=== PATIENT | female | born 1985 | race Caucasian/White ===

== ENCOUNTER → 2021-06-12 | Outpatient (CLI) | payer OTHER ==
[~2021-06-12] VITALS: Ht 177.8 cm; Wt 117.9 kg
[~2021-06-12] MED LIST: FLEXERIL PO; MELOXICAM15 MG PO; MIRENA1 EACH INTRAUTERI; NABUMETONE 500500 M2 PO; UNISOM25 MG PO
[2021-06-12 11:10] VITALS: BP 139/98
--- NOTE | 2021-06-12 11:29 | NUR ---
Pain Clinic Assessment: 1. History of Osteoarthritis: BACK History of Rheumatoid Arthritis: Not Applicable 2. Height: 5 ft. 10 in. 177.8 cm. Weight: 260.0 lb. oz. 117.936 kg. Patient's BMI: 37.3 3. Vital Signs: BP: 139/98 Pulse: 70 Resp: 16 Temp: 02 Sat: 100 ECG Mon: 4. Pain Intensity: 4 5. Fall Risk: Dizziness: N Needs help standing or walking: N Fallen in the last 3 months: N Fall risk comments: 6. Patient on Blood Thinner: None 7. History of Hypertension: N 8. Opioid Therapy greater than 6 weeks: N Opiate Contract Signed: 9. Risk Assessment Tool Provided: LOW-1 10. Functional Assessment Tool: 11. Recreational Drug Use: Never Drug Type: Tobacco Use: Former Smoker Tobacco Type: Amount or Packs/day: How Many Years: Alcohol Use: Yes Frequency: Special Occasions Quant: 1
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
== END ==
LOC: PAIN 10:20
PROVIDERS: ATTEND Anesthesiology Pain Medicine
DX: G89.29 Other chronic pain (principal); M47.817 Spondylosis without myelopathy or radiculopathy, lumbosacral region; E66.9 Obesity, unspecified; M19.90 Unspecified osteoarthritis, unspecified site; I10 Essential (primary) hypertension; G43.909 Migraine, unspecified, not intractable, without status migrainosus; F32.9 Major depressive disorder, single episode, unspecified; Z68.37 Body mass index [BMI] 37.0-37.9, adult; Z88.8 Allergy status to other drugs, medicaments and biological substances; Z79.891 Long term (current) use of opiate analgesic; Z79.899 Other long term (current) drug therapy

== ENCOUNTER → 2021-07-24 | Outpatient (CLI) | payer OTHER ==
[~2021-07-24] VITALS: Ht 177.8 cm; Wt 122.3 kg
[2021-07-24 13:02] VITALS: BP 135/93
--- NOTE | 2021-07-24 13:16 | NUR ---
Pain Clinic Assessment: 1. History of Osteoarthritis: BACK History of Rheumatoid Arthritis: Not Applicable 2. Height: 5 ft. 10 in. 177.8 cm. Weight: 269.6 lb. oz. 122.290 kg. Patient's BMI: 38.7 3. Vital Signs: BP: 135/93 Pulse: 65 Resp: 16 Temp: 02 Sat: 100 ECG Mon: 4. Pain Intensity: 2-3 5. Fall Risk: Dizziness: N Needs help standing or walking: N Fallen in the last 3 months: Y Fall risk comments: 6. Patient on Blood Thinner: None 7. History of Hypertension: N 8. Opioid Therapy greater than 6 weeks: N Opiate Contract Signed: 9. Risk Assessment Tool Provided: LOW-1 10. Functional Assessment Tool: 11. Recreational Drug Use: Current within past 3 mos Drug Type: CBD AND THC; EATABLE Tobacco Use: Former Smoker Tobacco Type: Amount or Packs/day: How Many Years: Alcohol Use: Yes Frequency: Weekly Quant: 1 BEER
--- NOTE | 2021-07-31 10:15 | HPC ---
[facility] [place] [address] [address] PAIN MANAGEMENT CONSULTATION Name: WILLY CAPPS Room #: REG [facility].#: [id number] Admission: 07/24/21 Attend Phys: Bay Dougherty DO Discharge: Date of : 83 Report #: [id number] THIS REPORT FOR: cc: HARIS JOYCE Physician not on staff Bay Dougherty DO ~ DATE OF SERVICE: 07/24/2021 CHIEF COMPLAINT: Axial back pain. HISTORY OF PRESENT ILLNESS: As you know, the patient is a 35-year-old, class 2 morbidly obese female with a longstanding history of low back pain which began about 1 year ago. She denies injury or trauma. She indicates she trialled conservative treatment, but no improvement in symptoms. When we saw the patient in consultation per the request of physician merchandising assistant, Diamond Chapman, the patient was complaining of basically axial back pain, no radiation of symptoms in classic dermatomal distribution. She was diagnosed with facet arthropathy of the lumbar spine leading to chronic axial back pain. We discussed treatment options; the patient was rotated from meloxicam to nabumetone. The patient reported no significant pain improvement with this medication. She returns today in followup visit to discuss the possibility of undergoing intraarticular diagnostic facet injections. ALLERGIES: SULFAMETHOXAZOLE, TRIAMTERENE. CURRENT MEDICATIONS: Unisom 25 mg p.o. at bedtime, cyclobenzaprine 10 mg t.i.d., Mirena IUD. SOCIAL HISTORY: The patient reports she uses no tobacco. She does use edible CBD and tetrahydrocannabinol. She admits to occasional alcohol beverage. She is self-employed. She is unaccompanied at today's visit. IMAGING: No new imaging available. PHYSICAL EXAMINATION: VITAL SIGNS: Blood pressure 135/93, pulse 65, respiratory rate 16 and unlabored. The patient 100% on room air. Height 5 feet 10 inches tall, weight 269.6 pounds, BMI calculated 38.7. GENERAL: Well-developed, well-nourished, well-hydrated, obese, 35-year-old female appearing stated age, pain is rated anywhere from 2-3/10. HEENT: Normocephalic, atraumatic. Pupils equal, round and responsive. She is wearing a mask in compliance with COVID-19 regulations. EXTREMITIES: Show no clubbing, no cyanosis. No appreciable edema. MUSCULOSKELETAL: Lower extremity strength is symmetrical 5/5. Muscle bulk and tone equal and symmetrical in comparing lower extremities. Seated straight leg raising negative. Supine straight leg raising negative. Fabere's test is negative. Modified Gaenslen's positive for axial low back pain. Lumbar [address] [address] PAIN MANAGEMENT CONSULTATION Name: WILLY CAPPS Room #: REG [facility] [id number] Admission: 07/24/21 Attend Phys: Bay Dougherty DO Discharge: Date of : 83 Report #: [id number] provocation testing is once again met with increasing axial back pain located over the L4-L5, L5-S1 facet joints bilaterally. ASSESSMENT: 1. Chronic low back pain due to facet arthropathy. 2. Lumbosacral spondylosis without radiculopathy. 3. Obesity. 4. Chronic intractable pain. PLAN: 1. The patient returns today in followup visit having noted no significant improvement in symptoms with the rotation from meloxicam to nabumetone. She reports that she may have been experiencing some side effects of diarrhea with the medication and discontinue the medication, but these symptoms have not improved. She returns today in followup visit, discussed treatment options to address axial back pain. We had discussed at her last visit treatment options to address facet arthropathy pain. These would include adjustments in medication management, which we have trialled and have not noted benefit. We discussed physical therapy for which the patient has undergone 12 weeks of physical therapy and is continuing to do her homework, but this has improved symptoms only mildly. We had discussed a diagnostic intra-articular facet injections in the hopes of improving symptoms and providing further information to the neurosurgery team who referred the patient. We also discussed radiofrequency lesioning of the medial branch nerves of the lumbar spine and ultimately surgical options. She returns today to begin the process of preapproval to undergo diagnostic intraarticular facet injections. 2. The patient was advised that due to third constitution party payer restrictions, authorization has to be obtained before the patient could undergo bilateral L4-L5, L5-S1 diagnostic intra-articular facet injections, will begin that authorization process immediately. Once we have that authorization completed, we will have the patient return to undergo those injections. If we are unable to obtain authorization for those type of injections requested by the neurosurgery team, we might look towards radiofrequency lesioning of medial branch nerves of the lumbar spine, which would start with medial branch nerve blocks. We wish to address the neurosurgeon's request for the bilateral diagnostic intra-articular facet injections first as this will provide them with information whether surgical options may be necessary. We will begin that process immediately and contact the patient once this is completed. 3. No medication changes made at today's visit. The patient will continue current medical therapy as prior prescribed. 4. We plan to see the patient back in followup visit once we have achieved [address] [address] PAIN MANAGEMENT CONSULTATION Name: WILLY CAPPS Room #: REG DAPHNIE Ruelas#: [id number] Admission: 07/24/21 Attend Phys: Bay Dougherty DO Discharge: Date of : 83 Report #: [id number] authorization to undergo bilateral L4-L5, L5-S1 intra-articular diagnostic facets. <ELECTRONICALLY SIGNED> By: Bay Dougherty DO 07/31/21 1015 1316 0018 Bay Dougherty DO /nt
== END ==
LOC: PAIN 10:05
PROVIDERS: ATTEND Anesthesiology Pain Medicine
DX: G89.29 Other chronic pain (principal); M47.817 Spondylosis without myelopathy or radiculopathy, lumbosacral region; E66.9 Obesity, unspecified

== ENCOUNTER → 2021-08-21 | Outpatient (CLI) | payer OTHER ==
[~2021-08-21] VITALS: Ht 177.8 cm; Wt 123.0 kg
[2021-08-21 09:52] VITALS: BP 133/84
--- NOTE | 2021-08-21 10:02 | NUR ---
Pain Clinic Assessment: 1. History of Osteoarthritis: BACK History of Rheumatoid Arthritis: Not Applicable 2. Height: 5 ft. 10 in. 177.8 cm. Weight: 271.2 lb. oz. 123.016 kg. Patient's BMI: 38.9 3. Vital Signs: BP: 133/84 Pulse: 84 Resp: 16 Temp: 02 Sat: 100 ECG Mon: 4. Pain Intensity: 4 5. Fall Risk: Dizziness: N Needs help standing or walking: N Fallen in the last 3 months: N Fall risk comments: 6. Patient on Blood Thinner: None 7. History of Hypertension: N 8. Opioid Therapy greater than 6 weeks: N Opiate Contract Signed: 9. Risk Assessment Tool Provided: LOW-1 10. Functional Assessment Tool: 11. Recreational Drug Use: Past greater than 3 mos Drug Type: Tobacco Use: Former Smoker Tobacco Type: Amount or Packs/day: How Many Years: Alcohol Use: Yes Frequency: Daily Quant: 1
--- NOTE | 2021-08-22 07:55 | HPC ---
[facility] [place] [address] PAIN MANAGEMENT CONSULTATION Name: GÉNESISWILLY BARAJAS Room #: [facility] [id number] Admission: 08/21/21 Attend Phys: Bay Dougherty DO Discharge: Date of : 83 Report #: [id number] THIS REPORT FOR: cc: KESHIA JOYCE Physician not on staff Bay Dougherty DO ~ cc: Keshia Foy DATE OF SERVICE: 08/21/2021 REFERRING PHYSICIAN: Dr. Keshia Foy. CHIEF COMPLAINT: Axial back pain. HISTORY OF PRESENT ILLNESS: As you know, the patient is a 35-year-old class 2 morbidly obese female with longstanding history of low back pain, which began about a year ago. She denied any specific injury or trauma. The patient was seen in consultation per the request of primary care physician on 07/24/2021, diagnosed with chronic low back pain due to facet arthropathy. She was advised of the treatment options and chose to undergo bilateral L4-5, L5-S1 diagnostic facet injections. The patient has been advised that her third libertarian payer was unwilling to cover the procedure as they felt that they had an illegible copy of the MRI, though we have reviewed the documentation provided and the documentation was easily legible as legible as any of the other progress notes sent with the request. They also had indicated that she did not meet the criteria as she had not completed conservative options. We have the patient return today in followup visit where we have discussed those conservative options that she has participated in. The following have been trialled and failed. The patient initially started with yoga. She was going to yoga classes 4 times a week. This started 11/2020, and this is before the patient even began to seek treatment from her medical genetics director. Once she began to seek evaluation, she was given 3 months of physical therapy where she attended twice a week and still performing those exercises at home. She has been subsequently discharged from physical therapy as she is optimized medically based on their records. She now is participating in Pilates twice a week to try to strengthen the back and provide analgesic benefit. She does use phff-wgk-vjgbkqv medication in the form of ibuprofen. She has been started on meloxicam which she used, but did not notice benefit. We started the patient on nabumetone for baseline pain control, but she did not notice benefit. She noticed no side effects to either of those treatments. She has not sought acupuncture therapy, but has trialled chiropractic manipulation, which she reports is ineffective. She returns today in followup visit to clarify the conservative treatment option she has been involved in to begin the process of authorization to undergo the bilateral L4-5, L5-S1 diagnostic facet injections requested. ALLERGIES: SEPTRA. [address] [address] PAIN MANAGEMENT CONSULTATION Name: WILLY CAPPS Room #: REG CLI Suraj#: [id number] Admission: 08/21/21 Attend Phys: Bay Dougherty DO Discharge: Date of : 83 Report #: [id number] CURRENT MEDICATIONS: Unisom 25 mg p.o. at bedtime, cyclobenzaprine 10 mg 3 times a day, Mirena intrauterine as directed, ibuprofen 200 mg 2 tabs to 3 tabs p.o. q.i.d. p.r.n. pain. SOCIAL HISTORY: The patient reports no tobacco use. Denies IV or illicit drug use, but does partake in CBD and marijuana. She admits to occasional alcohol beverage. She is self-employed, unaccompanied today. IMAGING: No new imaging available. PHYSICAL EXAMINATION: VITAL SIGNS: Blood pressure 133/84, pulse 84, respiratory rate 16 and unlabored. The patient 100% on room air. Height 5 feet 10 inches tall, weight 271.2 pounds, BMI calculated 38.9. GENERAL: Well-developed, well-nourished, well-hydrated class 2 morbidly obese 35-year-old female, appearing stated age, placing current pain score 4/10. HEENT: Normocephalic, atraumatic. Pupils are round. She is wearing a mask in compliance with COVID-19 regulations. EXTREMITIES: Show no clubbing, no cyanosis, no appreciable edema. MUSCULOSKELETAL: Lower extremity strength remains symmetrical again today. Seated straight leg raising negative. Supine straight leg raising is negative. HYACINTH's test is negative. Modified Gaenslen's positive for axial back pain. Lumbar provocation testing is once again met with increasing axial back pain. This is noted mainly with rotation and lateral flexion, both left and right. ASSESSMENT: 1. Lumbosacral spondylosis without radiculopathy. 2. Facet arthropathy of lumbar spine. 3. Obesity. 4. Chronic intractable pain. PLAN: 1. The patient returns today in followup visit where we have discussed with the patient again all the conservative options the patient has trialled to date in hopes of improving pain. As indicated in the history of present illness, the patient has undergone treatment with yoga 4 times a week starting in 11/2020. This did not provide much in the way of benefit. She continues to do yoga at home. She did 3 months of formalized physical therapy twice a week and was discharged from physical therapy as she had been medically optimized. She still performs those exercises at home. She is now taking Pilates course twice a week in hopes of strengthening the back and improving symptoms. She is taking kxlk-vow-gzeyrpq medication in the form of ibuprofen. She has been trialled on meloxicam and nabumetone without benefit. She has tried chiropractic manipulation, but this was ineffective. She is not considered acupuncture therapy. It does appear based on this history she has done more than enough to [address] [address] PAIN MANAGEMENT CONSULTATION Name: WILLY CAPPS Room #: REG DAPHNIE Ruelas#: [id number] Admission: 08/21/21 Attend Phys: Bay Dougherty DO Discharge: Date of : 83 Report #: [id number] address conservative treatment, the fact that they have all subsequently failed indicates that her facet arthropathy needs to be dealt with in a more aggressive way. We will recommend bilateral L4-5, L5-S1 diagnostic intra-articular facet injections. We will begin the process of authorization for this starting today. 2. No medication changes made at today's visit. The patient will continue current medical therapy as prior prescribed. 3. We are hopeful to have approval for the patient to undergo bilateral L4-5, L5-S1 diagnostic intra-articular facet injections completed over the next couple of days. We will have the patient return to undergo those procedures once they have been approved. We will make ourselves available to see the patient back in followup as quickly as possible once those approvals have been obtained. Hopefully, we will see her back in followup visit in a very short period of time. <ELECTRONICALLY SIGNED> By: Bay Dougherty DO 08/22/21 0755 1314 0110 Bay Dougherty DO /nt
== END ==
LOC: PAIN 06:56
PROVIDERS: ATTEND Anesthesiology Pain Medicine
DX: M47.27 Other spondylosis with radiculopathy, lumbosacral region (principal); E66.9 Obesity, unspecified; G89.4 Chronic pain syndrome; Z79.891 Long term (current) use of opiate analgesic; Z79.899 Other long term (current) drug therapy

== ENCOUNTER → 2021-09-11 | Outpatient (CLI) | payer OTHER ==
[~2021-09-11] VITALS: Ht 177.8 cm; Wt 123.3 kg
[2021-09-11 10:03] VITALS: BP 143/89
--- NOTE | 2021-09-11 10:48 | NUR ---
Pain Clinic Assessment: 1. History of Osteoarthritis: BACK History of Rheumatoid Arthritis: Not Applicable 2. Height: 5 ft. 10 in. 177.8 cm. Weight: 271.8 lb. oz. 123.288 kg. Patient's BMI: 39.0 3. Vital Signs: BP: 143/89 Pulse: 86 Resp: 16 Temp: 02 Sat: 97 ECG Mon: 4. Pain Intensity: 5 5. Fall Risk: Dizziness: N Needs help standing or walking: N Fallen in the last 3 months: N Fall risk comments: 6. Patient on Blood Thinner: None 7. History of Hypertension: N 8. Opioid Therapy greater than 6 weeks: N Opiate Contract Signed: 9. Risk Assessment Tool Provided: LOW-1 10. Functional Assessment Tool: 11. Recreational Drug Use: Past greater than 3 mos Drug Type: Tobacco Use: Former Smoker Tobacco Type: Amount or Packs/day: How Many Years: Alcohol Use: Yes Frequency: Quant:
--- NOTE | 2021-09-12 08:05 | HPC ---
[facility] [place] [address] [place] [address] PAIN MANAGEMENT CONSULTATION Name: GÉNESISWILLY BARAJAS [id number] Admission: 09/11/21 Attend Phys: Bay Dougherty DO Discharge: Date of : 83 Report #: [id number] THIS REPORT FOR: cc: YOLANDA JOYCE Physician not on staff Bay Dougherty DO ~ cc: ALON Mcdonald DATE OF SERVICE: 09/11/2021 CHIEF COMPLAINT: Axial back pain. HISTORY OF PRESENT ILLNESS: As you know, the patient is a class 2 morbidly obese 35-year-old female who has a longstanding history of low back pain, which began about a year ago. She denied any specific injury or trauma. She was seen in consultation per the request of her primary care physician, diagnosed with facet arthropathy of the lumbar spine and we discussed treatment options at that juncture. She was advised treatment options could include physical therapy, stretching exercise, core strengthening and a concerted effort at weight loss. We discussed suggestions in medication management, adding nonsteroidal anti-inflammatories in conjunction with the current medications. We discussed intra-articular facet injections from diagnostic purposes standpoint if these were successful, but if her symptoms recur, then move on with medial branch nerve blocks. If these were then successful in alleviating symptoms, then move on with radiofrequency lesioning. We also discussed surgical options with the patient. After reviewing risks and benefits of all proposed treatment options, she chose to begin with intraarticular diagnostic facets. We have achieved authorization for the patient to undergo the procedure today. She returns today in followup visit with pain level of 5/10. She states the pain is constant, aching, sharp, stabbing and tender when describing symptoms, exacerbated with sitting, walking and standing, improves with heat and cold compresses, stretching and exercise. She returns today in followup visit, having received authorization to undergo bilateral L4-L5, L5-S1 intraarticular diagnostic facet injections under fluoroscopic guidance. ALLERGIES: SEPTRA. CURRENT MEDICATIONS: Unisom, cyclobenzaprine, Mirena, ibuprofen. SOCIAL HISTORY: The patient denies tobacco use. Denies IV or illicit drug use. She does report that she partakes in CBD and marijuana. She admits to occasional alcohol beverage. She is self-employed, unaccompanied today. IMAGING: No new imaging available. PHYSICAL EXAMINATION: VITAL SIGNS: Blood pressure 143/89, pulse is 86, respiratory rate 16 and [facility] [address] [place] [address] PAIN MANAGEMENT CONSULTATION Name: WILLY CAPPS Room #: REG [facility]#: [id number] Admission: 09/11/21 Attend Phys: Bay Dougherty DO Discharge: Date of : 83 Report #: [id number] unlabored. The patient is 97% on room air. Height 5 feet 10 inches tall, weight 271.8 pounds, BMI calculated 39. GENERAL: Well-developed, well-nourished, well-hydrated, class 2 morbidly obese 35-year-old female appearing stated age. Pain is rated today at 5/10. HEENT: Normocephalic, atraumatic. Pupils are round and responsive. She is wearing a mask in compliance with COVID-19 regulations in hospital restrictions. EXTREMITIES: Show no clubbing, no cyanosis, no edema. MUSCULOSKELETAL: Lower extremity strength is symmetrical, 5/5. Seated straight leg raising negative. Supine straight leg raising negative. Fabere's test is negative. Modified Gaenslen is positive for axial low back pain. Lumbar provocation testing is met with increasing axial back pain noted mainly with rotation and lateral flexion. This is bilateral, right greater than left. ASSESSMENT: 1. Lumbosacral spondylosis without radiculopathy. 2. Facet arthropathy of lumbar spine. 3. Morbid obesity. 4. Chronic intractable pain. PLAN: 1. The patient returns today in followup visit having received authorization to undergo bilateral intraarticular diagnostic facets at the L4-L5 and L5-S1 level in hopes of improving pain. The patient and I have discussed at length the treatment, risks and benefits. These risks include but are not necessarily limited to bleeding, bruising, infection, worsening pain, no relief of pain, also risk of temporary or permanent muscle weakness, temporary or permanent nerve damage, possible paralysis, post-dural puncture headache and . The patient states understood and wished to proceed. 2. No medication changes made at today's visit. The patient will continue current medical therapy as prior prescribed. 3. We plan to see the patient back in followup visit in approximately one month. At that time, review the efficacy of the diagnostic intraarticular facets and determine if we continue intraarticular diagnostic facet injections or whether or not we move forward with medial branch nerve blocks and radiofrequency lesioning. I did advise the patient if she notes excellent benefit with the intraarticular facet diagnostic blocks, but her symptoms reoccur quite quickly, I would recommend medial branch nerve blocks transitioning on to radiofrequency lesioning. She is agreeable with that plan. PROCEDURE NOTE DESCRIPTION OF PROCEDURE: Bilateral L4-L5, L5-S1 intraarticular facet injections under fluoroscopic guidance. This is the first procedure of the first series that the patient is undergoing. [address] [address] PAIN MANAGEMENT CONSULTATION Name: WILLY CAPPS Room #: [facility]#: [id number] Admission: 09/11/21 Attend Phys: Bay Dougherty DO Discharge: Date of : 83 Report #: [id number] After obtaining written consent, the patient was taken back to the fluoroscopy suite and placed in a prone position with a pillow under the abdomen to decrease the lumbar lordosis and to facilitate needle entry into the facet joints. The skin overlying the lumbosacral area was prepped and draped in an aseptic fashion. AP and lateral fluoroscopic imaging was obtained. Optimal position of the fluoroscope occurred when the joint line was first visualized. The facet joints were identified radiographically directed adjacent to the superior articular process of the caudad vertebrae. The skin overlying the target sites of injection was anesthetized using 3 mL of 1% lidocaine. A 22-gauge, 4-1/2-inch spinal needle with a bent tip was advanced towards the L4-5, L5-S1 facet joints on the right and left sides under fluoroscopic guidance. The firm posterior capsule had its characteristic feel and the needle was advanced a few additional millimeters beyond the joint capsule into the joint space, but not into the articular cartilage. After the joint space was entered and aspiration was negative for heme or CSF, 0.2 mL of Omnipaque was injected demonstrating a characteristic facet arthrogram. After negative aspiration for heme or CSF, 1.5 mL of a solution containing 2 mL, 40 mg per mL, 80 mg total triamcinolone and 4 mL bupivacaine 0.5% was slowly injected at each of the three facets. The needle was then removed. There were no apparent complications. The patient tolerated the procedure well and was carefully escorted to the recovery room in stable condition. The VAS was 5/10 before the procedure and 2/10 ten minutes after the procedure. After meeting discharge criteria, the patient was discharged home. <ELECTRONICALLY SIGNED> By: Bay Dougherty DO 09/12/21 [id number] Bay Dougherty DO /nt
== END | disposition home or self-care (01) ==
LOC: PAIN 06:59
PROVIDERS: ATTEND Anesthesiology Pain Medicine
DX: M47.817 Spondylosis without myelopathy or radiculopathy, lumbosacral region (principal); M47.816 Spondylosis without myelopathy or radiculopathy, lumbar region; G89.29 Other chronic pain; E66.01 Morbid (severe) obesity due to excess calories; Z98.890 Other specified postprocedural states; Z79.899 Other long term (current) drug therapy; Z87.891 Personal history of nicotine dependence; Z68.29 Body mass index [BMI] 29.0-29.9, adult; Z88.2 Allergy status to sulfonamides; Z88.8 Allergy status to other drugs, medicaments and biological substances